=== PATIENT | male | born 1945 | race Caucasian/White ===

== ENCOUNTER 2019-04-28 06:44 | Day surgery (SDC) | payer MEDICARE, OTHER ==
[~2019-04-28 06:44] MED LIST: CELECOXIB 100 MG CAPSULE PO ONE; FAMOTIDINE 20MG TABLET PO ONE; MECLIZINE 25 MG TABLET PO ONE; METOCLOPRAMIDE 10 MG TABLET PO ONE; VANCOMYCIN 1GM/200ML PREMIX 1 GM/200 ML PIGGYBACK IVPB ONE
[2019-04-28] MEDS ORDERED: 0.9 % SODIUM CHLORIDE 10 ML VIAL IVP ONE (06:45)
[2019-04-28] MEDS ORDERED: DEXAMETHASONE 4 MG/ML 1ML VIAL IVP ONE (06:45)
[2019-04-28] MEDS ORDERED: TRANEXAMIC ACID 1,000 MG/10 ML ML IV ONE ×2 (06:45)
[2019-04-28] MEDS ORDERED: KETAMINE HCL 100MG/1ML VIAL INJ ONE (06:45)
[2019-04-28] MEDS ORDERED: PROPOFOL 10 MG/ML VIAL IV ONE (06:45)
[2019-04-28] MEDS ORDERED: ROPIVACAINE HCL (NAROPIN) /PF 5MG/ML 20ML VIAL IV ONE (06:45)
[2019-04-28] MEDS ORDERED: MIDAZOLAM HCL 2MG/2ML VIAL IV ONE (06:45)
[2019-04-28 07:13] LABS: URINE APPEARANCE CLEAR; URINE BILIRUBIN NEGATIVE (NEGATIVE); URINE BLOOD NEGATIVE (NEGATIVE); URINE COLOR YELLOW; URINE GLUCOSE (UA) NEGATIVE (NEGATIVE); URINE KETONE NEGATIVE (NEGATIVE); URINE LEUKOCYTE ESTERASE TRACE (NEGATIVE); URINE NITRITE NEGATIVE (NEGATIVE); URINE PROTEIN NEGATIVE (NEGATIVE); URINE UROBILINOGEN 0.2 E.U./dL (0.20 - 1.00)
[2019-04-28 07:21] LABS: URINE EPITHELIAL CELLS 0 - 2 (FEW); URINE RBC NONE SEEN (NONE SEEN); URINE WBC 0 - 2 (0-2/hpf)
[2019-04-28] MEDS ORDERED: RINGERS SOLUTION,LACTATED 1,000 ML IV ONE ×2 (07:35→10:49)
[2019-04-28 08:01] LABS: ABO GROUP O; ANTIBODY SCREEN NEGATIVE (NEGATIVE); RH TYPE POSITIVE
[2019-04-28] MEDS ORDERED: BUPIVACAINE 0.5% W/EPI MPF 30 ML VIAL SQ ONE (09:57)
[2019-04-28] MEDS ORDERED: DIPHENHYDRAMINE HCL 25 MG CAPSULE PO PRN (11:09)
[2019-04-28] MEDS ORDERED: MAGNESIUM HYDROXIDE 30 ML UDC PO PRN (11:09)
[2019-04-28] MEDS ORDERED: ONDANSETRON HCL IV 4 MG/2 ML VIAL IVP PRN (11:09)
[2019-04-28] MEDS ORDERED: ACETAMINOPHEN W/ CODEINE 300MG/60MG TABLET PO PRN ×2 (11:09)
[2019-04-28] MEDS ORDERED: NALOXONE 0.4 MG/1 ML VIAL IVP PRN (11:09)
[2019-04-28] MEDS ORDERED: TRAMADOL HCL 50 MG TABLET PO PRN (11:09)
[2019-04-28] MEDS ORDERED: ZOLPIDEM TARTRATE 5 MG TABLET PO PRN (11:09)
[2019-04-28] MEDS ORDERED: HYDROMORPHONE HCL 2 MG/ML VIAL IM PRN (11:09)
[2019-04-28] MEDS ORDERED: HYDROCODONE/APAP 10/325 TABLET PO PRN (11:09)
[2019-04-28] MEDS ORDERED: BISACODYL 10 MG SUPP RC PRN (11:09)
[2019-04-28] MEDS ORDERED: ACETAMINOPHEN 325 MG TAB PO PRN (11:09)
[2019-04-28] MEDS ORDERED: KETOROLAC 30 MG/ML VIAL IVP PRN ×2 (11:09)
[2019-04-28] MEDS ORDERED: AL HYDROX/MAG HYDROX 30ML UD PO PRN (11:09)
[2019-04-28] MEDS: LISINOPRIL 5 MG TABLET PO SCH (15:22)
[2019-04-28] MEDS: HYDROCODONE/APAP 10/325 TABLET PO PRN ×3 (15:27→22:26)
--- NOTE | 2019-04-28 15:30 | Operative Note ---
DATE OF SURGERY: 04/28/2019 PREOPERATIVE DIAGNOSIS: End-stage arthrosis of the left knee. POSTOPERATIVE DIAGNOSIS: End-stage arthrosis of the left knee. OPERATION: Cemented left total knee arthroplasty using [employer] II components with a size 6 cobalt chrome femur, a size 5 stemmed tibia baseplate, a 9 mm lipped tibial insert, and a 35 mm all-plastic patella. STAFF SURGEON: Scout Ragsdale MD ANESTHESIA: General. PREPARATION: Chloraprep. INDIVIDUAL CONSIDERATIONS: None. PROCEDURE: The patient was taken to the operating room, placed supine on the operating room table. He had a successful induction of a spinal anesthetic. The left lower extremity was prepped and draped in the usual fashion. The patient had a midline approach to the knee. Sharp dissection carried down through skin and subcutaneous tissue. Small veins were coagulated with a Bovie. A medial arthrotomy was performed. The patella was everted and the knee was flexed. He had exposed bone at the medial compartment primarily and some in the notch. Fat pad was resected, ACL was sacrificed, and provisional anterior meniscectomies were performed. The capsule was released from the medial proximal tibia. The initial femoral food truck caterer hole was then made freehand. The intramedullary femoral cutting jig was placed. It was cut in 7.0 degrees of valgus and adjusted for rotation and secured with pins. It was set for a 10 mm resection keyed off the high lateral side. After making the initial transverse cut, the skin guide was placed in the anterior and posterior food truck caterer holes. It was found that a size 6 would be appropriate. The anterior and posterior cuts followed by chamfer cuts were made. Osteophytes removed, and a size 6 trial was placed and found to fit well. The tibia was brought forward, and the remainder of the meniscal remnants removed with a Bovie. The extraarticular tibial cutting jig was placed. It was cut in neutral with a 3-degree AP slope. It was set for a 9 mm resection keyed off the high lateral side and secured with pins. When cutting the tibia, care was taken to preserve the PCL insertion on the tibia. After removing osteophytes, I could easily fit a size 5. It was adjusted for rotation and secured with pins. With a 9 mm lipped trial and femoral trial, there was excellent motion and stability, ligamentous balance, and rotation alignment were thought to be normal. Femoral food truck caterer holes were impacted and tri-flange tibial stamp was impacted, and these trial components were removed. The patient had a thick patella and roughly 9 mm of bone was removed freehand. I could easily to fit a 35 patella, and the 3 food truck caterer holes were then drilled. The knee was then thoroughly irrigated out with pulsatile Betadine and saline to remove any visual or palpable debris. Bony surfaces were then dried. The tourniquet was let down briefly to get bleeders posteriorly and then placed back up again. A size 5 stemmed tibia baseplate was cemented into place followed by impaction of the 9 mm lipped tibial insert followed by cementing in the size 6 cobalt chrome femur followed by cementing in the 35 mm patella. The implant surfaces were compressed, excess cement was removed. After the cement had set, there was excellent motion and stability, ligamentous balance, rotation alignment, and patellofemoral tracking were normal. No lateral release was required. Tourniquet was let down. Hemostasis was obtained with a Bovie. Again thorough irrigation to remove any visual or palpable debris. I then took 30 mL of 0.5% Marcaine with epinephrine and infiltrated the skin, subcu, and periosteum. The capsule was then closed with a running #2 quill, subcu was closed in layers with running 0 quill, skin was closed with sven. The patient did receive 1 g of tranexamic acid preoperatively. I mixed 1 g of tranexamic acid with 30 mL of saline and injected into the knee through a sterile 18-gauge needle, and a sterile bulky compressive SARINA-type dressing was applied. The patient tolerated the procedure well. Needle and sponge counts were correct. Estimated blood loss was minimal, and he was taken back to recovery in good condition. There were no complications. RICKEY
--- NOTE | 2019-04-28 16:03 | Rehab Evaluation ---
Patient Information - Patient Information Diagnosis: L knee OA Ordered Treatment: PT Evaluate and Treat Status: Initial Evaluation Surgery: Yes (L TKA) Date of Surgery: 04/28/19 Past Medical/Surgical Hx: PAST MEDICAL/SURGICAL HISTORY Past Surgical History AORTIC VALVE REPLACEMENT BILAT CATARACTS POWER PORT INSERTION PMH - Respiratory Hx Respiratory Disorders Yes Hx Pneumonia Yes: NOTHING RECENT PMH - Cardiovascular Hx Cardiovascular Disorders Yes Hx Edema Yes: FEET AND ANKLES Hx Hypertension Yes: ON MEDS WITH GOOD CONTROL Hx of Prosthetic Valve Yes: AORTIC 2018 Exercise Tolerance Fair PMH - Neuro Hx Neurological Disorders No PMH - GI Hx Gastrointestinal Disorders No PMH - Hx Genitourinary Disorders No PMH - Endocrine Hx Endocrine Disorders Yes Hx Diabetes Yes: DX'D MANY YRS AGO Hx of NIDDM Yes: METFORMIN Comment: BLOOD SUGARS 130-140 PMH - Musculoskeletal Hx Musculoskeletal Disorders Yes Hx Arthritis Yes: KNEES Hx Gout Yes: HX OF PMH - Psych Hx Psychiatric Problems No PMH - Hematology/Oncology Hx Hematology/Oncology Yes Disorders 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 The bathroom is equipped with a walk in shower, shower bench, hand held shower,elevated toilet. There are no grab bars in the bathroom. The patient has a front wheeled walker, single point cane.) Precautions: [place], Fall, Other (WBAT on the L LE.) - Time With Patient Total Time Spent With Patient (Min): 30 Treatment Procedures: Detail (Initial Evaluation low complexity, gait training) Subjective Information - Subjective Information Per Patient (The patient has minimal complaints of L knee pain and did not rate using 0-10 pain scale.) Objective Data - Mental Status Patient Orientation: Oriented x3 - Visual Perception Appears within normal limits for therapeutic activities - ROM Not within normal limits (The patient's L knee AROM is limited s/p surgery. All other LE AROM is WNL.) - Strength/Tone Not within normal limits (The patient's L LE strength was not tested s/p surgery however was functional ie: pt. was able to complete SLR. R LE strength is WFL.) - Bed Mobility Independent (The patient was independent with supine to and from sit transfer and scooting up in bed.) - Transfers Independent (The patient is independent with sit to and from stand transfer.) - Balance Balance Sitting: Good Balance Standing: Good - Sensation Intact - Gait Detail (The patient ambulated with front wheeled walker WBAT on the L LE a distance of 75 feet x 1 with supervision for 1 for safety.) Therapy Assessment - Therapy Assessment Detail (The patient was independent with bed mobility, transfers and supervision for safety with ambulation only. Feel the patient will progress well with mobility.) Problem List - Problem List Physical Therapy Problem List: Detail (Decreased L knee AROM and decreased LE strength) Goals - Goals Physical Therapy Goals: 1)The patient will be independent with ambulation with assistive device WBAT on the L LE community distances. 2) The patient will ambulate on stairs with supervision for safety using proper technique. 3) The patient will be independent with TKA HEP. Prognosis - Prognosis Good Plan - Plan Physical Therapy Plan: PT 1-2 times sessions for gait training on levels and stairs and instruction in HEp.
[2019-04-28] MEDS: VANCOMYCIN 1GM/200ML PREMIX 1 GM/200 ML PIGGYBACK IVPB SCH (18:47)
[2019-04-28] MEDS ORDERED: HEPARIN SODIUM FLUSH 100 UNITS/ML SYR 5ML IVP ONE (19:55)
[2019-04-28] MEDS: POTASSIUM CHLORIDE/D5-0.9%NACL 20 MEQ/1,000 ML BAG IV SCH (20:02)
[2019-04-28] MEDS: METFORMIN 500 MG TABLET PO SCH (21:28)
[2019-04-28] MEDS: DOCUSATE SODIUM 100 MG CAPSULE PO SCH (21:28)
[2019-04-28] MEDS: TMP/SMZ 160MG/800MG TAB PO SCH (21:30)
[2019-04-28] MEDS: METOPROLOL TART 25 MG TABLET PO SCH (21:31)
[2019-04-28] MEDS ORDERED: SIMVASTATIN 20 MG TABLET PO SCH (22:00)
[2019-04-29] MEDS: HYDROCODONE/APAP 10/325 TABLET PO PRN ×3 (01:54→12:43)
[2019-04-29] MEDS: POTASSIUM CHLORIDE/D5-0.9%NACL 20 MEQ/1,000 ML BAG IV SCH ×3 (04:09→15:23)
[2019-04-29] MEDS: VANCOMYCIN 1GM/200ML PREMIX 1 GM/200 ML PIGGYBACK IVPB SCH (06:39)
[2019-04-29 06:51] LABS: HEMATOCRIT 33.3 % (42.0-52.0); HEMOGLOBIN 10.3 gm/dl (14.0-18.0)
[2019-04-29 07:07] LABS: BLOOD UREA NITROGEN 21 mg/dL (8-23); CREATININE 1.1 mg/dL (0.7-1.2); EST GLOMERULAR FILTRATION RATE > 60 mL/min; GLUCOSE,RANDOM 127 mg/dL (74-109)
--- NOTE | 2019-04-29 08:24 | Rehab Evaluation ---
Patient Information - Patient Information Diagnosis: L knee OA Ordered Treatment: OT Evaluate and Treat Status: Initial Evaluation Surgery: Yes (L TKA) Date of Surgery: 04/28/19 Past Medical/Surgical Hx: PAST MEDICAL/SURGICAL HISTORY Past Surgical History AORTIC VALVE REPLACEMENT BILAT CATARACTS POWER PORT INSERTION PMH - Respiratory Hx Respiratory Disorders Yes Hx Pneumonia Yes: NOTHING RECENT PMH - Cardiovascular Hx Cardiovascular Disorders Yes Hx Edema Yes: FEET AND ANKLES Hx Hypertension Yes: ON MEDS WITH GOOD CONTROL Hx of Prosthetic Valve Yes: AORTIC 2018 Exercise Tolerance Fair PMH - Neuro Hx Neurological Disorders No PMH - GI Hx Gastrointestinal Disorders No PMH - Hx Genitourinary Disorders No PMH - Endocrine Hx Endocrine Disorders Yes Hx Diabetes Yes: DX'D MANY YRS AGO Hx of NIDDM Yes: METFORMIN Comment: BLOOD SUGARS 130-140 PMH - Musculoskeletal Hx Musculoskeletal Disorders Yes Hx Arthritis Yes: KNEES Hx Gout Yes: HX OF PMH - Psych Hx Psychiatric Problems No PMH - Hematology/Oncology Hx Hematology/Oncology Yes Disorders 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 His is responsible for home mgmt, laundry and sharing meal prep. His will be completing yard work until patient is able to return to this task.) Social History: Detail (The patient lives with spouse in a one story house with one step at the entrance and no handrail. The bathroom is equipped with a walk in shower, shower bench, hand held shower, elevated toilet. There are grab bars in the shower and by the toilet. The patient has a front wheeled walker, single point cane, and long shoe horn.) Precautions: [place], Fall, Other (WBAT on the L LE.) - Time With Patient Total Time Spent With Patient (Min): 35 Treatment Procedures: Detail (OT eval low complexity) Subjective Information - Subjective Information Per Patient Objective Data - Pain Pain Present: Yes (12/31) - Mental Status Patient Orientation: Oriented x3 - Visual Perception Appears within normal limits for therapeutic activities - ROM Within normal limits (Jorje UE AROM WNL) - Strength/Tone Within normal limits (Jorje UE strength WNL) - Coordination Appears within normal limits for therapeutic activities - Bed Mobility Independent (Ind with supine to sit) - Transfers Independent (Ind with sit to stand from EOB with verbal cues for technique.) - Balance Balance Sitting: Good Balance Standing: Good - Sensation Intact - Gait Detail (Pt ambulating in room with 2 wheeled walker and SBA) - ADL's/IADL's Detail (Pt educated and able to demonstrate learning of modified LE dressing techniques including doffing briefs and slipper socks and donning boxer shorts, shorts and tennis shoes. Pt required use of long shoe horn and minimal assist for left slipper sock and tennis shoe. He reports he is not planning to wear socks and he will have assist from his if needed. Reviewed kitchen and shower safety and modifications, pt able to verbalize understanding.) Therapy Assessment - Therapy Assessment Detail (Pt Ind with modified LE dressing techniques.) Problem List - Problem List Physical Therapy Problem List: Detail (Decreased L knee AROM and decreased LE strength) Occupational Therapy Problem List: Detail (No current IP OT problems identified.) Goals - Goals Physical Therapy Goals: 1)The patient will be independent with ambulation with assistive device WBAT on the L LE community distances. 2) The patient will ambulate on stairs with supervision for safety using proper technique. 3) The patient will be independent with TKA HEP. Occupational Therapy Goals: No current IP OT goals identified. Prognosis - Prognosis Good Plan - Plan Physical Therapy Plan: PT 1-2 times sessions for gait training on levels and stairs and instruction in HEp. Occupational Therapy Plan: No further IP OT recommended. Thank you for this referral.
[2019-04-29] MEDS: METOPROLOL TART 25 MG TABLET PO SCH (09:47)
[2019-04-29] MEDS: DOCUSATE SODIUM 100 MG CAPSULE PO SCH (09:50)
[2019-04-29] MEDS: LISINOPRIL 5 MG TABLET PO SCH (09:51)
[2019-04-29] MEDS: METFORMIN 500 MG TABLET PO SCH (09:52)
[2019-04-29] MEDS: TMP/SMZ 160MG/800MG TAB PO SCH (09:52)
--- NOTE | 2019-04-29 09:59 | Physical Therapy Tx Note ---
Physical Therapy Tx Note - Treatment Note Tolerated: Good Total Time Spent With Patient: 25 Physical Therapy Tx Note: Detail (The patient was up in chair when PT arrived and had complaints of L knee pain, level "12" using 0-10 pain scale. The patient ambulated with front wheeled walker a distance of 100 feet x 1 with WBAT on the L LE independently. The patient ambulated on 3 steps with use of one railing with supervision for safety using proper technique. The patient's was observing and felt comfortable with guarding patient on stairs. The patient's HEP was reviewed and completed the following: ankle pumps, gluteal sets, hamstring sets, quad sets, seated heel slides, and SLR. The patient has met inpatient PT goals and is discharged from inpatient PT.) Physical Therapy Problem List: Detail (Decreased L knee AROM and decreased LE s trength) Physical Therapy Goals: 1)The patient will be independent with ambulation with assistive device WBAT on the L LE community distances.(Goal Met). 2) The patient will ambulate on stairs with supervision for safety using proper technique.(Goal Met). 3) The patient will be independent with TKA HEP.(Goal Met) Physical Therapy Plan: The patient is discharged from inpt. PT and is to continue with Home PT.
[2019-04-29] MEDS ORDERED: FERROUS SULFATE 325 MG TAB PO SCH (10:00)
[2019-04-29] MEDS ORDERED: RIVAROXABAN 10 MG TABLET PO SCH (10:00)
[2019-04-29] MEDS ORDERED: PIOGLITAZONE HCL 15 MG TABLET PO SCH (10:00)
[2019-04-29] MEDS ORDERED: ASPIRIN 81 MG TABEC PO SCH (10:00)
== END 2019-04-29 13:25 | disposition home health service (06) ==
LOC: SUR 06:44 → MEDSURG 12:02 → SUR 04-29 13:25
PROVIDERS: ATTEND Orthopaedic Surgery
DX: M17.12 Unilateral primary osteoarthritis, left knee (principal); I10 Essential (primary) hypertension; E11.9 Type 2 diabetes mellitus without complications; E78.00 Pure hypercholesterolemia, unspecified; C85.90 Non-Hodgkin lymphoma, unspecified, unspecified site; Z98.61 Coronary angioplasty status; Z95.2 Presence of prosthetic heart valve
CPT/HCPCS: 36416; 76942; 80048; 81001; 82948; 85014; 85018; 86850; 86900; 86901; C1776; J1885; J3370; J3480; J3490; J7120

== ENCOUNTER 2019-08-12 11:45 | Day surgery (SDC) | payer MEDICARE, OTHER ==
[~2019-08-12 11:45] MED LIST changes: +ACETAMINOPHEN 1,000 MG/100 ML BTL IVPB ONE; -CELECOXIB 100 MG CAPSULE PO ONE; -FAMOTIDINE 20MG TABLET PO ONE; -MECLIZINE 25 MG TABLET PO ONE; -METOCLOPRAMIDE 10 MG TABLET PO ONE; -VANCOMYCIN 1GM/200ML PREMIX 1 GM/200 ML PIGGYBACK IVPB ONE
[2019-08-12] MEDS ORDERED: PROPOFOL 10 MG/ML VIAL IV ONE (11:46)
[2019-08-12] MEDS ORDERED: LIDOCAINE 2% MDV (20MG/ML) 20ML VIAL IV ONE (11:46)
[2019-08-12] MEDS ORDERED: FENTANYL PF 100MCG/2ML VIAL IV ONE (11:46)
[2019-08-12] MEDS ORDERED: KETOROLAC 30 MG/ML VIAL IVP ONE (11:46)
[2019-08-12] MEDS ORDERED: RINGERS SOLUTION,LACTATED 1,000 ML IV ONE (13:25)
[2019-08-12] MEDS ORDERED: BUPIVACAINE 0.5% W/EPI MPF 30 ML VIAL IU ONE (14:31)
[2019-08-12] MEDS ORDERED: METHYLPREDNISOLONE 40MG/VIAL IU ONE (14:31)
[2019-08-12] MEDS ORDERED: HYDROCODONE/APAP 7.5/325MG TABLET PO ONE (15:01)
--- NOTE | 2019-08-13 09:50 | Operative Note ---
DATE OF SURGERY: 08/12/2019 PREOPERATIVE DIAGNOSIS: Arthrofibrosis of the left knee. POSTOPERATIVE DIAGNOSIS: Arthrofibrosis of the left knee. OPERATION: 1. Left knee injection under anesthesia. 2. Left knee manipulation under anesthesia. STAFF SURGEON: Scout Ragsdale MD ANESTHESIA: General. PREPARATION: Chloraprep. INDIVIDUAL CONSIDERATIONS: None. PROCEDURE: The patient was taken to the operating room and placed supine on the operating room table. He had a successful induction of general anesthetic. I went ahead and manipulated his knee. There was a hard end point at 80 degrees but I easily pushed through to 130 degrees and full extension. I then prepped superolaterally with Chloraprep and then injected the knee with 15 mL of 0.5% Marcaine with epinephrine along with 40 mg of Depo-Medrol through a sterile 20- gauge needle and a Band-Aid was applied. He was taken back to recovery in good condition. There were no complications. RICKEY
== END 2019-08-12 15:22 | disposition home or self-care (01) ==
LOC: SUR 11:45
PROVIDERS: ATTEND Orthopaedic Surgery
DX: M24.662 Ankylosis, left knee (principal); I10 Essential (primary) hypertension; E11.9 Type 2 diabetes mellitus without complications; E78.00 Pure hypercholesterolemia, unspecified; Z98.61 Coronary angioplasty status; C85.90 Non-Hodgkin lymphoma, unspecified, unspecified site; Z85.118 Personal history of other malignant neoplasm of bronchus and lung
CPT/HCPCS: J1030; J1885; J7120